=== PATIENT | male | born 1960 | race Caucasian/White ===

== ENCOUNTER → 2016-09-09 | Outpatient (CLI) | payer BC | END | disposition home or self-care (01) | LOC: PCVCIMAG 13:07 | PROVIDERS: ATTEND Internal Medicine Cardiovascular Disease | DX: I10 Essential (primary) hypertension (principal); E78.00 Pure hypercholesterolemia, unspecified; E11.9 Type 2 diabetes mellitus without complications; G47.33 Obstructive sleep apnea (adult) (pediatric); R07.89 Other chest pain | CPT/HCPCS: 93325; 93351 ==

== ENCOUNTER → 2018-12-14 | Outpatient (CLI) | payer BC ==
--- NOTE | 2018-12-14 13:49 | PCVCIMAG ---
APPROVED REPORT Study performed: 12/14/2018 12:52:22 Exam: Stress Echocardiogram Indication: Chest Pressure, Elevated CA Score, Dyspnea Patient Location: Echo lab Stress Nurse: Janette Sarabia RN Status: routine Ht: 5 ft 10 in HR: 88 bpm BP: 118/82 mmHg Rhythm: NSR Medical History Medical History: Diabetes, Hyperlipidemia, HTN Procedure The patient underwent an Exercise Stress Test using the Kali Protocol. Blood pressure, heart rate, and EKG were monitored. An Echocardiogram was performed by sound engineering technician in four stages in quad fashion. At peak stress, four selected images were obtained and placed side by side with resting images for comparison. Stress Test Details Stress Test: Exercise stress testing was performed using a Kali protocol. HR Resting HR: 88 bpmMax Heart Rate (APMHR): 162 bpm Max HR Achieved: 169 bpmTarget HR (85% APMHR): 137 bpm % of APMHR: 104 Recovery HR: 113 bpm HR response to stress: Normal HR response to stress BP Resting BP: 118/82 mmHg Max BP: 160/76 mmHg Recovery BP: 140/82 mmHg BP response to stress: Normal blood pressure response to stress. ECG Resting ECG: Sinus Rhythm Stress ECG: Sinus Rhythm Recovery ECG: Sinus Rhythm Clinical Reason for Termination: Maximal effort, HIP PAIN Exercise duration: 9 min 30 sec Highest Stage Achieved: Stage 4: 4.2 mph at 16% grade. Exercise capacity: 11.80 METs Overall Exercise Capacity for Age: Normal Stress ECG Conclusion ECG: Non-ischemic Clinical: Non-ischemic Pre-Stress Echo The resting Echocardiogram showed normal left ventricular contractility with an estimated Ejection Fraction of about >55%. Normal wall motion in all segments on baseline images. Post-Stress Echo The stress Echocardiogram showed normal left ventricular contractility with an estimated Ejection Fraction of about 60-65%. Normal augmentation of wall motion in all segments on post stress images. Clinical No clinical or ECG evidence for ischemia. Conclusion Clinical Response: Non-ischemic Exercise Capacity: Average Stress ECG Response: Non-ischemic Stress Echo Images: Non-ischemic No clinical, EKG or echocardiographic evidence for ischemia. Other Information Study Quality: Adequate <Conclusion> No clinical, EKG or echocardiographic evidence for ischemia.
== END | disposition home or self-care (01) ==
LOC: PCVCIMAG 12:33
PROVIDERS: ATTEND Internal Medicine Cardiovascular Disease
DX: I10 Essential (primary) hypertension (principal); E11.9 Type 2 diabetes mellitus without complications
CPT/HCPCS: 93325; 93351